=== PATIENT | male | born 1975 | race Caucasian/White ===

== ENCOUNTER 2018-10-31 02:02 | Observation (INO) | payer OTHER ==
[~2018-10-31] VITALS: Ht 182.9 cm; Wt 102.5 kg
[2018-10-31 02:08] VITALS: BP 126/66
[2018-10-31] MEDS ORDERED: NEXIUM40 MG PO (02:12)
[2018-10-31 02:50] LABS: HEMATOCRIT 48.1 % (42.0-52.0); HEMOGLOBIN 15.9 gm/dL (14.0-18.0); MCH 30.4 pg (26.0-34.0); MCHC 33.2 g/dL (28.0-37.0); MCV 91.7 fL (80.0-100.0); MPV 7.5 fl. (7.2-11.1); NUCLEATED RBCS 0 /100WBC; PLATELET COUNT* 182 thou/uL (150-400); RBC 5.24 mil/uL (4.50-6.00); RDW-CV 13.4 % (10.5-14.5); WBC 11.3 thou/uL (4.0-11.0)
[2018-10-31 02:56] LABS: ANION GAP 8 mmol/L (7-16); BUN 15 mg/dL (7-18); CALCIUM 8.7 mg/dL (8.5-10.1); CHLORIDE 99 mmol/L (98-107); CO2 28 mmol/L (21-32); CREATININE 1.1 mg/dL (0.6-1.3); GLUCOSE 135 mg/dL (70-99); POTASSIUM 3.8 mmol/L (3.5-5.1); SODIUM 135 mmol/L (136-145)
[2018-10-31 02:57] LABS: INR 1.1; PROTIME 10.8 Seconds (9.20-11.50)
[2018-10-31 03:09] LABS: ALBUMIN 3.9 g/dL (3.4-5.0); ALKALINE PHOSPHATASE 55 U/L (46-116); NT-PRO BRAIN NAT PEPTIDE 18 pg/mL (<300); SGOT 16 U/L (15-37); SGPT 32 U/L (30-65); TOTAL BILIRUBIN 1.2 mg/dL (<0.1-1.0); TOTAL PROTEIN 7.1 g/dL (6.4-8.2); TROPONIN-I LEVEL <0.06 ng/mL (<0.06)
[2018-10-31 03:38] LABS: ABSOLUTE LYMPHOCYTES 0.6 thou/uL (0.8-5.3); ABSOLUTE MONOCYTES 0.6 thou/uL (0.0-1.2); ABSOLUTE NEUTROPHILS 10.2 thou/uL (1.6-8.1)
[2018-10-31 03:39] LABS: PLATELET ESTIMATE ADEQUATE
[2018-10-31 05:38] LABS: URINE BILIRUBIN NEGATIVE (Negative); URINE BLOOD NEGATIVE (Negative); URINE CLARITY CLEAR; URINE COLOR YELLOW; URINE GLUCOSE-RANDOM NEGATIVE (Negative); URINE KETONES NEGATIVE (Negative); URINE LEUKOCYTES-REFLEX NEGATIVE (Negative); URINE NITRITE-REFLEX NEGATIVE (Negative); URINE PROTEIN NEGATIVE (Negative); URINE SPECIFIC GRAVITY <= 1.005 (1.005-1.030); URINE UROBILINOGEN 0.2 E.U./dl (0.2-1.0)
[2018-10-31 07:49] VITALS: BP 116/71
[2018-10-31 08:07] VITALS: BP 98/62
[2018-10-31] MEDS ORDERED: ZYRTEC10 M4 PO (08:39)
[2018-10-31 09:27] LABS: CHOLESTEROL 170 mg/dL (<200); HDL CHOLESTEROL 50 mg/dL (>40); LDL CHOLESTEROL 110 mg/dL (<100); TC:HDL 3.4 Ratio (Not establshd); TRIGLYCERIDE 54 mg/dL (<150); VLDL 11 mg/dL (<40)
[2018-10-31 09:28] LABS: SERUM ASSESSMENT Clear
--- NOTE | 2018-10-31 10:52 | EKG ---
[place] [address] ELECTROCARDIOGRAM REPORT Name: GONZALES SCHROEDER Room: [address] ADM IN ..#: [id number] Admission: 10/31/18 Attend Phys: Denise Anne MD Discharge: Date of : 75 Report #: [id number] THIS REPORT FOR: //name// [facility] ED Test Date: 2018-10-31 Test Time: 02:15:06 Pat Name: GONZALES SCHROEDER Department: Room: [facility] Gender: M Care Management Specialist: : 1975 Requested By: Aleisha Bowen Order Number: [id number] MD: Prakash Wright Measurements Intervals [place] Rate: 82 P: 25 DC: 168 QRS: 44 QRSD: 90 T: 12 QT: 360 QTc: 421 Interpretive Statements Sinus rhythm No previous ECG available for comparison Electronically Signed On 10-31-2018 10:52:01 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
[2018-10-31 11:35] VITALS: BP 111/70
[2018-10-31 11:37] VITALS: BP 114/76
--- NOTE | 2018-10-31 13:22 | 2DMMODE ---
[place] [address] 2 D/M-MODE ECHOCARDIOGRAM Name: GONZALES SCHROEDER Room: [address] IN [facility]#: [id number] Admission: 10/31/18 Attend Phys: Denise Anne, Discharge: Date of : 75 Date of Service: 10/31/18 1322 Report #: [id number] THIS REPORT FOR: //name// APPROVED REPORT Study performed: 10/31/2018 11:10:50 EXAM: Comprehensive 2D, Doppler, and color-flow Echocardiogram Patient Location: In-Patient Room #: [facility] BSA: 2.24 HR: 72 bpm BP: 98/62 mmHg Other Information Study Quality: Good Indications Syncope 2D Dimensions IVSd: 10.62 (7-11mm) LVOT Diam: 20.67 (18-24mm) LVDd: 50.97 mm PWd: 8.96 (7-11mm) Ascending Ao: 24.97 (22-36mm) LVDs: 35.20 (25-40mm) Aortic Root: 27.88 mm Volumes Left Atrial Volume (Systole) LA ESV Index: 18.10 mL/m2 Aortic Valve AoV Peak Ruperto.: 1.21 m/s AO Peak Gr.: 5.86 mmHg LVOT Max P.82 mmHg AO Mean Gr.: 3.03 mmHg LVOT Mean P.95 mmHg LVOT Max V: 1.31 m/s AO V2 VTI: 24.18 cm LVOT Mean V: 0.77 m/s BARB (VTI): 3.57 cm2 LVOT V1 VTI: 25.73 cm Mitral Valve E/A Ratio: 1.21 MV Decel. Time: 186.47 ms MV E Max Ruperto.: 0.73 m/s MV PHT: 54.08 ms MVA (PHT): 4.07 [place] [address] 2 D/M-MODE ECHOCARDIOGRAM Name: PETENATHANGONZALES J Room: [address] IN .R.#: [id number] Admission: 10/31/18 Attend Phys: Denise Anne, Discharge: Date of : 75 Date of Service: 10/31/18 1322 Report #: [id number] TDI E/Lateral E': 4.29 E/Medial E': 6.08 Medial E' Ruperto.: 0.12 m/s Lateral E' Ruperto.: 0.17 m/s Pulmonary Valve PV Peak Ruperto.: 1.07 m/s PV Peak Gr.: 4.57 mmHg Left Ventricle The left ventricle is normal size. There is normal LV segmental wall motion. There is normal left ventricular wall thickness. Left ventricular systolic function is normal. The left ventricular ejection fraction is within the normal range. LVEF is 55-60%. The left ventricular diastolic function is normal. Right Ventricle The right ventricle is normal size. The right ventricular systolic function is normal. Atria The left atrium size is normal. The right atrium size is normal. Aortic Valve The aortic valve is normal in structure. No aortic regurgitation is present. There is no aortic valvular stenosis. Mitral Valve The mitral valve is normal in structure. There is no mitral valve regurgitation noted. No evidence of mitral valve stenosis. Tricuspid Valve The tricuspid valve is normal in structure. Trace tricuspid regurgitation. Pulmonic Valve The pulmonary valve is normal in structure. Trace pulmonic regurgitation. Great Vessels The aortic root is normal in size. IVC is normal in size and collapses >50% with [place] [address] 2 D/M-MODE ECHOCARDIOGRAM Name: GONZALES SCHROEDER Room: [address] IN [facility]#: [id number] Admission: 10/31/18 Attend Phys: Denise Anne, Discharge: Date of : 75 Date of Service: 10/31/18 1322 Report #: [id number] There is no pericardial effusion. <Conclusion> Left ventricular systolic function is normal. The left ventricular ejection fraction is within the normal range. <ELECTRONICALLY SIGNED> By: Prakash Wright MD, [facility] 10/31/18 132 21 21 Prakash Wright MD, [facility] /INF
--- NOTE | 2018-10-31 14:40 | CON ---
[address] [address] CONSULTATION Name: GONZALES SCHROEDER Room: [address] IN .R.#: [id number] Admission: 10/31/18 Attend Phys: Denise Anne MD Discharge: Date of : 75 Report #: [id number] THIS REPORT FOR: //name// CC: Cornelius Anne DATE OF SERVICE: 10/31/2018 HISTORY OF PRESENT ILLNESS: The patient is a 43-year-old white male who I was asked to see in the hospital after he had a syncopal spell. The patient has no previous history of heart disease. He stays fairly active. He has had no previous cardiac evaluation. He notes that he went to work yesterday, but did not feel very well. He felt somewhat warm, nausea, had a headache. He drove home and did not eat dinner last night because he is supposed to have lab work done on the next day. He got up about 9:00 at night to go to the bathroom. He then sat down on the toilet. After having a loose stool, he apparently fell to the ground. His heard a noise. When she ran, she found him on the floor. He did struck his head on the counter. He was bleeding from his forehead. He was brought by his here to the Emergency Room. He required stitches of his forehead. I was asked to see him for further evaluation and treatment. He does have occasional lightheadedness when he stands up, but denied any recent bleeding, blood in his vomit. He denies history of chest pain, shortness of breath or palpitations. PAST MEDICAL HISTORY: He has had shoulder surgery, tonsillectomy. No history of hypertension, diabetes, hyperlipidemia. MEDICATIONS: Include Nexium, Zyrtec, vitamin D, fish oil. ALLERGIES: He has no known drug allergies. FAMILY HISTORY: His father had atrial fibrillation. SOCIAL HISTORY: He is . He and his live in [place]. 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 No smoking or alcohol abuse. REVIEW OF SYSTEMS: He has had no history of stroke, asthma, peptic ulcer disease, liver disease, kidney disease, cancer, psychiatric illness, chronic skin condition. PHYSICAL EXAMINATION: GENERAL: Revealed a young white male, lying in bed, appeared in no distress. VITAL SIGNS: He has a blood pressure of 110/70, pulse 70, he is afebrile. HEENT: He is anicteric. Conjunctivae pink. Mucous membranes moist. NECK: Veins nondistended. No carotid bruits. Neck supple. CHEST: [place] [address] CONSULTATION Name: GONZALES SCHROEDER Wil Room: [address] IN .#: [id number] Admission: 10/31/18 Attend Phys: Denise Anne MD Discharge: Date of : 75 Report #: [id number] CARDIOVASCULAR: Regular rate and rhythm without murmurs. ABDOMEN: Soft, nontender. EXTREMITIES: Had no edema. SKIN: He had the sutures on his forehead. There was some swelling and ecchymosis. NEUROLOGIC: Nonfocal. RADIOLOGICAL DATA: His ECG shows sinus rhythm, no significant ST or T-wave change. His workup in the Emergency Room last night, he had a CT scan of the head without contrast that showed right frontal scalp hematoma. No underlying fracture. Chest x-ray in the Emergency Room last night, normal heart size, clear lung knutson. Cervical spine films in the Emergency Room showed no acute abnormality. LABORATORY DATA: Last night, creatinine 1.1, glucose 135. Troponin 0.06. Cholesterol 170, triglycerides 54, HDL 50, LDL 110. White blood cell count 11.3, hemoglobin 15.9. Urinalysis negative for blood. IMPRESSION AND RECOMMENDATIONS: 1. Syncopal spell. Suspect vasovagal. Recommend echocardiogram. 2. Forehead laceration. The patient required stitches. 3. Forehead hematoma. 4. Recent fatigue, nausea and chills. Possible viral illness. 5. Loose stool. Possible viral illness. I would recommend avoiding dehydration. <ELECTRONICALLY SIGNED> By: Prakash Wright MD, FACC 10/31/18 1440 1233 [id number] Wright MD, FACC /nt
[2018-10-31 15:22] VITALS: BP 114/76
== END 2018-10-31 15:48 | disposition home or self-care (01) ==
LOC: M.ERS 02:02 → M.TBA-ER 07:02 → M.2W 07:02
PROVIDERS: Emergency Medicine; ADMIT Internal Medicine
DX: R55 Syncope and collapse (principal); S01.81XA Laceration without foreign body of other part of head, initial encounter; I10 Essential (primary) hypertension; I95.9 Hypotension, unspecified; W18.30XA Fall on same level, unspecified, initial encounter; Y93.89 Activity, other specified; Y92.89 Other specified places as the place of occurrence of the external cause; R19.7 Diarrhea, unspecified; Z79.899 Other long term (current) drug therapy; Z23 Encounter for immunization

== ENCOUNTER 2018-11-04 14:14 | Emergency (ER) | payer OTHER ==
[~2018-11-04] VITALS: Ht 182.9 cm; Wt 99.8 kg
[~2018-11-04 14:14] MED LIST: NEXIUM40 MG PO; ZYRTEC10 M4 PO
[2018-11-04 14:49] VITALS: BP 112/77
== END 2018-11-04 14:49 | disposition home or self-care (01) ==
LOC: M.ERS 14:14
DX: S01.81XD Laceration without foreign body of other part of head, subsequent encounter (principal); X58.XXXD Exposure to other specified factors, subsequent encounter; K21.9 Gastro-esophageal reflux disease without esophagitis